=== PATIENT | male | born 1965 | race Caucasian/White ===

== ENCOUNTER 2020-03-06 20:28 | Emergency (ER) | payer BC ==
[~2020-03-06] VITALS: Ht 185.4 cm; Wt 97.0 kg
--- NOTE | 2020-03-06 20:37 | PHYS DOC ---
General Adult HPI: HPI: ".. I pipe fell on my Rt. hand.. smashed my ring and fith finger...".. 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 but was just messing around in my shop.. I also raise [employer].. Patient is a 54 year old male who presents with above hx and complaints crush injury to fifth and fourth finger right hand. Patient has an open laceration to the tip of fifth finger approximately 1 cm. Distal neurovascular is intact. Does have range of motion. Patient is right-hand dominant. Patient only follows at [facility] for care. No recent travel outside the [facility]. No h istory of immunosuppression. Patient has unsure of last tetanus update but states he gets vaccinations up-to-date with [facility]. Review of Systems: Review of Systems: Constitutional: Denies fever or chills Eyes: Denies change in visual acuity HENT: Denies nasal congestion or sore throat Respiratory: Denies cough or shortness of breath Cardiovascular: Denies chest pain or edema GI: Denies abdominal pain, nausea, vomiting, bloody stools or diarrhea : Denies dysuria Musculoskeletal: Complains of crush injury to fourth and fifth finger right hand Integument: Denies rash Neurologic: Denies headache, focal weakness or sensory changes Endocrine: Denies polyuria or polydipsia Lymphatic: Denies swollen glands Psychiatric: Denies depression or anxiety Heart Score: Risk Factors: Risk Factors: DM, Current or recent (<one month) smoker, HTN, HLP, family history of CAD, obesity. Risk Scores: Score 0 - 3: 2.5% MACE over next 6 weeks - Discharge Home Score 4 - 6: 20.3% MACE over next 6 weeks - Admit for Clinical Observation Score 7 - 10: 72.7% MACE over next 6 weeks - Early Invasive Strategies Family History: Family History: Noncontributory to presentation Current Medications: Current Meds: See nursing for home medications Allergies: Allergies: No known drug allergies Physical Exam: PE: Constitutional: Well developed, well nourished, no acute distress, non-toxic appearance. [] HENT: Normocephalic, atraumatic, bilateral external ears normal, oropharynx moist, no oral exudates, nose normal. [] Eyes: PERRLA, EOMI, conjunctiva normal, no discharge. [] Neck: Normal range of motion, no tenderness, supple, no stridor. [] Cardiovascular:Heart rate regular rhythm, no murmur [] Lungs & Thorax: Bilateral breath sounds equal at apex auscultation [] Abdomen: Bowel sounds normal, soft, no tenderness, no masses, no pulsatile masses. [] Skin: Warm, dry, no erythema, no rash. [] Back: No tenderness, no CVA tenderness. [] Extremities: No tenderness, no cyanosis, no clubbing, ROM intact, no edema. [] Except injuries and right hand as per HPI Neurologic: Alert and oriented X 3, normal motor function, normal sensory function, no focal deficits noted. [] Psychologic: Affect anxious, judgement normal, mood normal. [] EKG: EKG: [] Radiology/Procedures: Radiology/Procedures: [][place] [address] IMAGING REPORT Signed PATIENT: CHRISTY COLUNGA RACCOUNT: [id number] : 1965 LOCATION: ER AGE: 54 SEX: M EXAM STATUS: DEP ER ORD. PHYSICIAN: ELIZABETH MARINA MD REASON: crush injury, 5TH FINGER PROCEDURE: HAND RIGHT 3V Three-view right hand radiographs 03/06/2020 CLINICAL HISTORY: Crush injury to the right hand. PA, lateral and oblique digital radiographs of the right hand were obtained. No fracture or dislocation right hand is seen. No radiopaque foreign body is noted. IMPRESSION: No fracture or dislocation of the right hand is seen. Electronically signed by: Regino Dickerson MD (03/06/2020 10:58 PM) [id number] DICTATED AND SIGNED BY: REGINO DICKERSON MD DATE: 03/06/20 2258 CC: ELIZABETH MARINA MD; PCP,NO ~ Course & Med Decision Making: Course & Med Decision Making Pertinent Labs and Imaging studies reviewed. (See chart for details) Procedure note-right hand clean and irrigated. Betadine applied to finger fifth right. Digital block with 2% lidocaine and local injection of laceration site with 2% lidocaine. Finger re-scrubbed and irrigated with normal saline. Closed with 3- x 4 -0 Prolene simple sutures. Dressing applied with antibiotic ointment. Patient to keep finger clean and dry. Patient use Tylenol and ibuprofen for pain. For marked pain may take Vicoprofen. Patient apply Polysporin 4 times a day. May have sutures removed in 10 days. Return if any signs of infection. Follow-up primary care. If continued pain after 2 weeks. Consider re-x-ray to evaluate for MS tuft fracture. No obvious displaced fracture at this time. Fifth finger jessie splinted to fourth finger. [] Impression: 1. Crush injury fifth and fourth finger Rt hand 2. Laceration fifth finger right 1 cm Dragon Disclaimer: Dragon Disclaimer: This electronic medical record was generated, in whole or in part, using a voice recognition dictation system. Departure Departure: Disposition: 01 HOME/RESIDENCE PRIOR TO ADM Condition: STABLE Referrals: PCP,NO (PCP) Scripts Hydrocodone/Ibuprofen (HYDROCODONE-IBUPROFEN 7.5-200 ) 1 Each Tablet 1 TAB PO PRN Q6HRS PRN for PAIN, #30 TAB 0 Refills Prov: ELIZABETH MARINA MD 03/06/20 Justification of Admission: Justification of Admission: Justification of Admission Dx: N/A Dragon Disclaimer This chart was dictated in whole or in part using Voice Recognition software in a busy, high-work load, and often noisy Emergency Department environment. It may contain unintended and wholly unrecognized errors or omissions. ELIZABETH MARINA MD Mar 06, 2020 20:37
[2020-03-06] MEDS ORDERED: MUPIROCIN 2% TOPICAL OINTMENT 22GM TUBE. TP SCH (21:30)
[2020-03-06] MEDS ORDERED: LIDOCAINE 2% 20 ML VIAL. IJ ONE (21:30)
[2020-03-06] MEDS ORDERED: HYDR-1179 PO (21:56)
[2020-03-06 22:05] VITALS: BP 137/87
--- NOTE | 2020-03-06 23:01 | RAD ---
Three-view right hand radiographs 03/06/2020 CLINICAL HISTORY: Crush injury to the right hand. PA, lateral and oblique digital radiographs of the right hand were obtained. No fracture or dislocation right hand is seen. No radiopaque foreign body is noted. IMPRESSION: No fracture or dislocation of the right hand is seen. Electronically signed by: Regino Garcia MD (03/06/2020 10:58 PM) [id number]
== END 2020-03-06 22:05 | disposition home or self-care (01) ==
LOC: ER 20:28
DX: S61.216A Laceration without foreign body of right little finger without damage to nail, initial encounter (principal); S67.194A Crushing injury of right ring finger, initial encounter; W18.39XA Other fall on same level, initial encounter; Y93.89 Activity, other specified; Y92.89 Other specified places as the place of occurrence of the external cause; Y99.8 Other external cause status
CPT/HCPCS: 12001; 73130; 99283; J2001

== ENCOUNTER 2020-09-10 02:21 | Emergency (ER) | payer OTHER, BC ==
[~2020-09-10] VITALS: Ht 185.4 cm; Wt 91.2 kg
[~2020-09-10 02:21] MED LIST: HYDR-1179 PO
--- NOTE | 2020-09-10 02:40 | PHYS DOC ---
Past History Past Medical History: Diabetes Past Surgical History: No Surgical History Alcohol Use: Occasionally Adult General HPI HPI Patient is a 54-year-old male presenting via EMS in police custody for hyperglycemia. Reports being at estranged significant other's house for which there is a restraining order against him with guns and other paraphernalia and his police is involved. Nonetheless, police were called to property and evaluated patient and there is concern for potential altered mental status. EMS was subsequently called and on arrival, check POC glucose that read "high". Patient was hypertensive but otherwise hemodynamically stable with no acute complaints. Patient is a known type II diabetic and does not use insulin daily, denies ever being in DKA, denies alcohol use, tobacco use or illicit drug abuse. States he has been taking all medications daily as scheduled, no recent stressors, travel or other known inciting events today. Denies fever, vision changes, syncope, chest pain, shortness of breath, abdominal pain, dysuria, neurologic deficits. Only complaint at present is his mouth is dry and he feels thirsty. 1 L IV lactated Ringer's administered in route Review of Systems Review of Systems Fourteen body systems of review of systems have been reviewed. See HPI for pertinent positives and negative responses, other sahu all other systems are negative, non-pertinent or non-contributory Current Medications Current Medications Current Medications Medications (Trade) Dose Ordered Sig/Amber Start Time Stop Time Status Last Admin Dose Admin Insulin Human Regular (HumuLIN R VIAL) 5 unit 1X ONCE 09/10/20 03:00 09/10/20 03:01 Sodium Chloride 1,000 ml @ 1,000 mls/hr Q1H 09/10/20 03:00 09/10/20 03:59 Allergies Allergies Allergies Coded Allergies Type Severity Reaction Last Updated Verified No Known Drug Allergies 03/06/20 No Physical Exam Physical Exam Constitutional: Well developed, well nourished, no acute distress, non-toxic appearance. HENT: Normocephalic, atraumatic, bilateral external ears normal, oropharynx dry, no oral exudates, nose normal. Eyes: PERRLA, EOMI, conjunctiva normal, no discharge. Neck: Normal range of motion, no tenderness, supple, no stridor. Cardiovascular: Heart rate regular, sinus rhythm, no murmurs rubs or gallops Lungs & Thorax: Bilateral breath sounds clear to auscultation Abdomen: Bowel sounds normal, soft, no tenderness, no masses, no pulsatile masses. Nonsurgical abdomen, no peritoneal signs Skin: Warm, dry, no erythema, no rash. Back: No tenderness, no CVA tenderness. Extremities: No tenderness, no cyanosis, no clubbing, ROM intact, no edema. Neurologic: Alert and oriented X 3, CN 2-12 intact, downgoing toes, normal motor & sensory function, no focal deficits noted. Psychologic: Affect normal, judgement normal, mood normal. Current Patient Data Vital Signs Vital Signs Date Time Temp Pulse Resp B/P (MAP) Pulse Ox O2 Delivery O2 Flow Rate FiO2 09/10/20 02:25 97.6 87 20 176/98 (124) 93 Room Air Vital Signs Date Time Temp Pulse Resp B/P (MAP) Pulse Ox O2 Delivery O2 Flow Rate FiO2 09/10/20 04:15 78 20 145/80 (101) 96 Room Air 09/10/20 02:25 97.6 Lab Results Laboratory Tests Test 09/10/20 02:27 09/10/20 02:30 09/10/20 04:02 Glucose (Fingerstick) 472 mg/dL (70-99) 248 mg/dL (70-99) White Blood Count 9.4 x10^3/uL (4.0-11.0) Red Blood Count 4.95 x10^6/uL (4.30-5.70) Hemoglobin 15.1 g/dL (13.0-17.5) Hematocrit 44.6 % (39.0-53.0) Mean Corpuscular Volume 90 fL (79-100) Mean Corpuscular Hemoglobin 30 pg (25-35) Mean Corpuscular Hemoglobin Concent 34 g/dL (31-37) Red Cell Distribution Width 13.0 % (11.5-14.5) Platelet Count 139 x10^3/uL (140-400) Neutrophils (%) (Auto) 86 % (31-73) Lymphocytes (%) (Auto) 8 % (24-48) Monocytes (%) (Auto) 6 % (0-9) Eosinophils (%) (Auto) 1 % (0-3) Basophils (%) (Auto) 0 % (0-3) Neutrophils # (Auto) 8.1 x10^3uL (1.8-7.7) Lymphocytes # (Auto) 0.7 x10^3/uL (1.0-4.8) Monocytes # (Auto) 0.5 x10^3/uL (0.0-1.1) Eosinophils # (Auto) 0.1 x10^3/uL (0.0-0.7) Basophils # (Auto) 0.0 x10^3/uL (0.0-0.2) Urine Collection Type Unknown Urine Color Yellow Urine Clarity Clear Urine pH 5.5 Urine Specific [place] 1.015 Urine Protein Neg (NEG-TRACE) Urine Glucose (UA) >=1000 mg/dL (NEG) Urine Ketones (Stick) 15 mg/dL (NEG) Urine Blood Small (NEG) Urine Nitrite Neg (NEG) Urine Bilirubin Neg (NEG) Urine Urobilinogen Dipstick 0.2 mg/dL (0.2 mg/dL) Urine Leukocyte Esterase Neg (NEG) Urine RBC 0 /HPF (0-2) Urine WBC 0 /HPF (0-4) Urine Squamous Epithelial Cells None /LPF Urine Bacteria 0 /HPF (0-FEW) Sodium Level 137 mmol/L (136-145) Potassium Level 4.1 mmol/L (3.5-5.1) Chloride Level 101 mmol/L (98-107) Carbon Dioxide Level 27 mmol/L (21-32) Anion Gap 9 (6-14) Blood Urea Nitrogen 18 mg/dL (8-26) Creatinine 1.1 mg/dL (0.7-1.3) Estimated GFR (Cockcroft-Gault) 70.3 Glucose Level 469 mg/dL (70-99) Lactic Acid Level 1.7 mmol/L (0.4-2.0) Calcium Level 9.0 mg/dL (8.5-10.1) Urine Opiates Screen Neg (NEG) Urine Methadone Screen Neg (NEG) Urine Barbiturates Neg (NEG) Urine Phencyclidine Screen Neg (NEG) Urine Amphetamine/Methamphetamine Neg (NEG) Urine Benzodiazepines Screen Neg (NEG) Urine Cocaine Screen Neg (NEG) Urine Cannabinoids Screen Neg (NEG) Ethyl Alcohol Level < 10 mg/dL (0-10) Urine Ethyl Alcohol (NEG) Acetone Level Neg (NEG) EKG EKG EKG ordered and interpreted by myself at 0247 hrs. as sinus rhythm at 81 bpm, unremarkable intervals, left axis deviation, no acute ischemic findings, no STEMI Radiology/Procedures Radiology/Procedures CT head without contrast PQRS statement: CT scans at this facility use dose reduction including either automated exposure control, iterative reconstructions, and /or weight based radiation dosing via mA and kV modification when appropriate to reduce radiation dose to as low as reasonably achievable. HISTORY: Hyperglycemia. No other clinical history was provided. FINDINGS: No intracranial hemorrhage, mass, hydrocephalus, extra-axial fluid collections or infarction. Orbits, mastoids and bones are unremarkable. IMPRESSION: Normal exam. Electronically signed by: Matthew Puentes MD (09/10/2020 3:14 AM) [facility] ///////////////// AP chest x-ray HISTORY: Hyperglycemia. FINDINGS: Heart size normal. Mediastinal silhouette is normal. Tiny calcified granulomas upper lobes. No pneumothorax, pulmonary opacities or pleural effusions. Bones are unremarkable. IMPRESSION: No acute process. Electronically signed by: Matthew Puentes MD (09/10/2020 3:11 AM) [facility] Heart Score C/O Chest Pain: No HEART Score for Chest Pain: HEART Score for Chest Pain Response (Comments) Value History Slighlty/Non-Suspicious 0 ECG Normal 0 Age >45 - < 65 1 Risk Factors 1 or 2 Risk Factors 1 Troponin < Normal Limit 0 Total 2 Risk Factors: Risk Factors: DM, Current or recent (<one month) smoker, HTN, HLP, family history of CAD, obesity. Risk Scores: Risk Factors: DM, Current or recent (<one month) smoker, HTN, HLP, family history of CAD, obesity. Course & Med Decision Making Course & Med Decision Making Hemodynamically stable with HPI for questionable AMS. PE non-concerning. Workup found patient to be hyperglycemic but this responded to IVF rehydration and IV insulin Patient mentation at baseline. Patient trying to avoid going to [facility]. Prior to departure wants me to check his RLE for "pain", this was non-concerning, neg [place] ankle and foot rules without any mechanism of injury He is medically fit for departure to [facility]. Discussed return precautions. All questions and concerns addressed prior to departure González Disclaimer Dragon Disclaimer This electronic medical record was generated, in whole or in part, using a voice recognition dictation system. Departure Departure: Impression: Primary Impression: Hyperglycemia Additional Impression: Non-insulin dependent diabetes mellitus Disposition: 05 DC/TRF OTHER TYPE INSTITUTI (to [facility] with owen nichols dept) Condition: STABLE Referrals: PCP,ARIE (PCP) Patient Instructions: Hyperglycemia Additional Instructions: You were seen for hyperglycemia. You need to start taking your insulin/diabetes medications as prescribed and follow up with your primary care doctor as soon as possible. It is important for good glycemic control to reduce the risks of acute and chronic medical problems. Return to the ED if you develop any abdominal pain, vomiting, cough, chest pain, fever, or any other new or concerning symptoms. Problem Qualifiers RASHAWN CHEN DO Sep 10, 2020 02:39
[2020-09-10 02:48] LABS: BASO % 0 % (0-3); EOS # 0.1 x10^3/uL (0.0-0.7); EOS % 1 % (0-3); HEMATOCRIT 44.6 % (39.0-53.0); HEMOGLOBIN 15.1 g/dL (13.0-17.5); LYMPH # 0.7 x10^3/uL (1.0-4.8); LYMPH % 8 % (24-48); MEAN CORPUSCULAR HEMOGLOBIN 30 pg (25-35); MEAN CORPUSCULAR HGB CONC 34 g/dL (31-37); MEAN CORPUSCULAR VOLUME 90 fL (79-100); MONO # 0.5 x10^3/uL (0.0-1.1); MONO % 6 % (0-9); NEUT # 8.1 x10^3uL (1.8-7.7); NEUT % 86 % (31-73); PLATELET COUNT 139 x10^3/uL (140-400); RED BLOOD COUNT 4.95 x10^6/uL (4.30-5.70); WHITE BLOOD COUNT 9.4 x10^3/uL (4.0-11.0)
--- NOTE | 2020-09-10 02:49 | EKG ---
[address] [address] Test Date: 2020-09-10 Test Time: 02:42:00 Pat Name: CHRISTY COLUNGA Department: Room: Gender: M Line Appliance Assembler: : 1965 Requested By: RASHAWN CHEN Order Number: [id number] Reading MD: Measurements Intervals [place] Rate: 81 P: 29 MA: 174 QRS: -42 QRSD: 94 T: 31 QT: 368 QTc: 428 Interpretive Statements SINUS RHYTHM ABNORMAL LEFT AXIS DEVIATION LEFT ANTERIOR FASCICULAR BLOCK INCOMPLETE RIGHT BUNDLE BRANCH BLOCK ABNORMAL ECG RI6.02 No previous ECG available for comparison
[2020-09-10 02:57] LABS: BARBITURATES NEG (NEG); BENZODIAZEPINES NEG (NEG); CANNABINOIDS NEG (NEG); COCAINE NEG (NEG); METHADONE NEG (NEG); OPIATES NEG (NEG); PHENCYCLIDINE NEG (NEG)
[2020-09-10 02:58] LABS: CREATININE 1.1 mg/dL (0.7-1.3); GFR 70.3; POTASSIUM 4.1 mmol/L (3.5-5.1)
[2020-09-10] MEDS ORDERED: IV NORMAL SALINE 1,000ML 1,000 ML IV SCH (03:00)
[2020-09-10] MEDS ORDERED: INSULIN REGULAR 100 UNIT/ML 3ML VIAL. IV ONE (03:00)
[2020-09-10 03:03] LABS: AMPHETAMINE/METHAMPHETAMINE NEG (NEG)
[2020-09-10 03:14] LABS: BILIRUBIN,URINE NEG (NEG); CLARITY,URINE CLEAR; COLOR,URINE YELLOW; GLUCOSE,URINE >=1000 mg/dL (NEG)
--- NOTE | 2020-09-10 03:14 | RAD ---
AP chest x-ray HISTORY: Hyperglycemia. FINDINGS: Heart size normal. Mediastinal silhouette is normal. Tiny calcified granulomas upper lobes. No pneumothorax, pulmonary opacities or pleural effusions. Bones are unremarkable. IMPRESSION: No acute process. Electronically signed by: Matthew Puentes MD (09/10/2020 3:11 AM) [facility] [place] [place]
[2020-09-10 03:15] LABS: BACTERIA,URINE 0 /HPF (0-FEW); NITRITE,URINE NEG (NEG); RBC,URINE 0 /HPF (0-2); UROBILINOGEN,URINE 0.2 mg/dL (0.2 mg/dL); WBC,URINE 0 /HPF (0-4)
--- NOTE | 2020-09-10 03:16 | RAD ---
CT head without contrast PQRS statement: CT scans at this facility use dose reduction including either automated exposure cont rol, iterative reconstructions, and /or weight based radiation dosing via mA and kV modification when appropriate to reduce radiation dose to as low as reasonably achievable. HISTORY: Hyperglycemia. No other clinical history was provided. FINDINGS: No intracranial hemorrhage, mass, hydrocephalus, extra-axial fluid collections or infarctio n. Orbits, mastoids and bones are unremarkable. IMPRESSION: Normal exam. Electronically signed by: Matthew Puentes MD (09/10/2020 3:14 AM) [facility]
[2020-09-10 04:15] VITALS: BP 145/80
[2020-09-10] MEDS ORDERED: ACETAMINOPHEN 500 MG TABLET PO ONE (04:30)
== END 2020-09-10 04:23 | disposition home or self-care (01) ==
LOC: EEVIPCON 02:21 → ER 02:21
DX: E11.65 Type 2 diabetes mellitus with hyperglycemia (principal)
CPT/HCPCS: 36415; 70450; 71045; 80048; 80307; 81001; 82010; 82947; 83605; 85025; 93005; 96361; 96374; 99285; G0480; J1815; J7030